=== PATIENT | female | born 1935 | race Caucasian/White ===

== ENCOUNTER 2017-07-19 10:08 | Observation (INO) ==
--- NOTE | 2017-07-19 10:20 | Emergency Department Note ---
Disposition Clinical Impression: Dyspnea, Elevated troponin, Renal insufficiency, Community acquired pneumonia Disposition: Admitted As Inpatient Reasons to Return/Additional Instructions: your blood pressure was normal to low today so please follow up with your doctor. Forms: ED Satisfaction Letter SOB HPI - General Chief Complaint: ED Shortness of Breath/Dyspnea Stated Complaint: DID NOT HAVE OXYGEN Time Seen by Provider: 07/19/17 10:10 Source: patient Mode of arrival: EMS Limitations: no limitations Nursing Notes Reviewed: Yes Vital Signs Reviewed: Yes - History of Present Illness Patient says she is visiting from out of town. She only wears oxygen at night when she sleeps. She did not bring her oxygen with her when she came. She woke up this morning and was extremely short of breath and called the squad. She has been on oxygen she feels back to normal she says. She denies any worse shortness of breath than normal for her at this point. She denies any chest pain, fever, nausea or vomiting. 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 Context: medication noncompliance Severity: moderate Consistency/Duration: constant Improves with: oxygen Worsens with: nothing Known history of: COPD, diabetes Associated symptoms: Reports: denies other symptoms Treatment prior to arrival: none Cough present: No - Related Data Home Medications Medication Instructions Recorded Confirmed Allopurinol [Zyloprim] 300 mg PO DAILY 07/19/17 07/19/17 Atorvastatin [Lipitor] 10 mg PO HS 07/19/17 07/19/17 Carbidopa [Lodosyn] 100 mg PO QID 07/19/17 07/19/17 Cholecalciferol (D-3) [Vitamin D] 1,000 unit PO DAILY 07/19/17 07/19/17 Cyclosporine [Restasis] 1 each OP BID 07/19/17 07/19/17 Esomeprazole Magnesium [Nexium] 20 mg PO BID 07/19/17 07/19/17 Furosemide [Lasix] 60 mg PO DAILY 07/19/17 07/19/17 Gabapentin [Neurontin] 100 mg PO BID 07/19/17 07/19/17 Hydroxychloroquine [Plaquenuil] 200 mg PO DAILY 07/19/17 07/19/17 Isosorbide MONOnitrate [Isosorbide 120 mg PO BID 07/19/17 07/19/17 Mononitrate ER] Levothyroxine [Synthroid] 100 mcg PO DAILY 07/19/17 07/19/17 Losartan [Cozaar] 50 mg PO DAILY 07/19/17 07/19/17 Metoprolol [Lopressor] 50 mg PO BID 07/19/17 07/19/17 Warfarin [Coumadin] 1.25 mg PO 1800 07/19/17 07/19/17 metFORMIN [Glucophage] 500 mg PO BIDWM 07/19/17 07/19/17 Allergies Allergy/AdvReac Type Severity Reaction Status Date / Time cephalexin [From Keflex] AdvReac Vomiting Verified 07/19/17 10:21 All systems ED: reviewed and negative except as stated. Review of Systems: As Per HPI Constitutional: Denies: fever, chills, weakness, weight change Eyes: Denies: eye pain, eye discharge, vision change ENT ED: Denies: ear pain, throat pain, dental pain, hearing loss, epistaxis, congestion, dysphagia Cardiovascular: Denies: chest pain, palpitations, dyspnea on exertion, edema, syncope Respiratory: Reports: other (mild SOB) Gastrointestinal: Denies: abdominal pain, nausea, vomiting, diarrhea, constipation, hematemesis, melena, hematochezia Genitourinary: Denies: dysuria, frequency, hematuria, discharge Musculoskeletal: Reports: as per HPI Integumentary: Denies: rash, abrasion, lesions Neurological: Denies: headache, weakness, numbness, paresthesias, confusion, abnormal gait, vertigo Psychiatric: Denies: anxiety, depression, suicidal thoughts, homicidal thoughts , auditory hallucinations, visual hallucinations Endocrine: Denies: fatigue Hematological/Lymphatic: Denies: easy bleeding, easy bruising Allergic/Immunologic: Denies: facial swelling, urticaria Past Medical History - Past Medical History Attestation: Yes The following information was validated with the patient. Source: patient Medical history: Reports: diabetes, hyperlipidemia, renal disease, other ( hypothyroid) Physical Exam - General Limitations: no limitations General appearance: alert - Head Head exam: atraumatic, normocephalic, normal inspection - Eye Eye exam: Present: normal appearance, PERRL, EOMI - ENT ENT exam: normal exam, normal oropharynx, mucous membranes moist - Neck Neck exam: Present: normal inspection, full ROM, trachea midline - Chest Chest inspection: Present: normal inspection, symmetric chest wall rise - Respiratory Respiratory exam: Present: normal lung sounds bilaterally. Absent: respiratory distress, wheezes, accessory muscle use - Cardiovascular Cardiovascular exam: Present: regular rate, normal rhythm - Abdominal Exam Abdominal exam: Present: soft, Non-Tender, normal bowel sounds - Extremities Exam Extremities exam: Present: normal inspection - Neurological Exam Neurological exam: Present: alert, oriented X3 - Psychiatric Psychiatric exam: Present: normal affect, normal mood - Skin Skin exam: Present: warm, dry Course Vital Signs Temperature 99.6 F 07/19/17 10:10 Pulse Rate 96 07/19/17 10:10 Respiratory Rate 20 07/19/17 10:10 Blood Pressure 98/48 07/19/17 10:10 O2 Sat by Pulse Oximetry 97 07/19/17 10:10 Temperature 99.6 F 07/19/17 10:10 Pulse Rate 102 07/19/17 11:02 Respiratory Rate 18 07/19/17 11:02 Blood Pressure 78/38 07/19/17 11:02 O2 Sat by Pulse Oximetry 97 07/19/17 11:02 Oxygen Delivery Oxygen Delivery Nasal Cannula Shortness of Breath/Dyspnea - [facility] Narrative Medical decision making narrative: Mrs. Clark initially said she was breathing normal with her oxygen which occur off the oxygen and she said she is having a little more trouble breathing so we decided to do a workup on her. - Lab Data Lab results reviewed: Yes I reviewed the patient's lab results. Result diagrams: 07/19/17 10:40 07/19/17 10:40 Lab Results 07/19/17 07/19/17 07/19/17 Range/Units 10:40 10:40 10:40 WBC 14.1 H (4.3-11.1) K/mcL RBC 2.67 L (3.82-4.97) M/mcL Hgb 8.3 L (11.5-15.4) g/dL Hct 26.6 L (35.3-44.9) % MCV 99.6 (83.0-100.0) fL MCH 31.1 (28.0-33.3) pg MCHC 31.2 L (31.6-35.5) g/dL RDW 15.8 H (11.5-14.5) % Plt Count 183 (140-400) K/mcL MPV 11.2 (9.4-12.4) fL Immature Gran % 0.5 (0-4) % Seg Neutrophils % 87.3 % Lymphocytes % 3.3 % Monocytes % 8.2 % Eosinophils % 0.6 % Basophils % 0.1 % Neutrophils # 12.3 H (1.6-8.9) K/mcL Lymphocytes # 0.5 L (0.6-4.6) K/mcL Monocytes # 1.2 (0.0-1.3) K/mcL Eosinophils # 0.1 (0.0-0.6) K/mcL Basophils # 0.0 (0.0-0.2) K/mcL PT 26.6 H (9.4-12.1) Seconds INR 2.4 APTT 30.5 (26.0-36.0) Seconds Sodium 142 (136-145) mEq/L Potassium 4.4 (3.5-4.5) mEq/L Chloride 103 (98-109) mEq/L Carbon Dioxide 27 (19-29) mEq/L BUN 60 H (7-20) mg/dL Creatinine 2.22 H (0.57-1.11) mg/dL Est GFR ( Amer) 26 L (> 60) Est GFR (Non-Af Amer) 21 L (> 60) BUN/Creatinine Ratio 27 H (6-26) Glucose 248 H (70-99) mg/dL Calculated Osmolality 319 H (280-300) Calcium 8.6 (8.6-10.8) mg/dL Total Bilirubin 0.4 (0.2-1.2) mg/dL AST 18 (5-34) Units/L ALT 10 (0-55) Units/L Alkaline Phosphatase 92 (38-126) Units/L Troponin I (0-0.03) ng/mL B-Natriuretic Peptide (0-100) pg/mL Serum Total Protein 5.4 L (6.0-8.3) g/dL Albumin 2.8 L (3.5-5.0) g/dL Globulin 2.6 (2.4-3.5) g/dL Albumin/Globulin Ratio 1.1 (1.1-2.2) 07/19/17 07/19/17 Range/Units 10:40 10:40 WBC (4.3-11.1) K/mcL RBC (3.82-4.97) M/mcL Hgb (11.5-15.4) g/dL Hct (35.3-44.9) % MCV (83.0-100.0) fL MCH (28.0-33.3) pg MCHC (31.6-35.5) g/dL RDW (11.5-14.5) % Plt Count (140-400) K/mcL MPV (9.4-12.4) fL Immature Gran % (0-4) % Seg Neutrophils % % Lymphocytes % % Monocytes % % Eosinophils % % Basophils % % Neutrophils # (1.6-8.9) K/mcL Lymphocytes # (0.6-4.6) K/mcL Monocytes # (0.0-1.3) K/mcL Eosinophils # (0.0-0.6) K/mcL Basophils # (0.0-0.2) K/mcL PT (9.4-12.1) Seconds INR APTT (26.0-36.0) Seconds Sodium (136-145) mEq/L Potassium (3.5-4.5) mEq/L Chloride (98-109) mEq/L Carbon Dioxide (19-29) mEq/L BUN (7-20) mg/dL Creatinine (0.57-1.11) mg/dL Est GFR ( Amer) (> 60) Est GFR (Non-Af Amer) (> 60) BUN/Creatinine Ratio (6-26) Glucose (70-99) mg/dL Calculated Osmolality (280-300) Calcium (8.6-10.8) mg/dL Total Bilirubin (0.2-1.2) mg/dL AST (5-34) Units/L ALT (0-55) Units/L Alkaline Phosphatase (38-126) Units/L Troponin I 0.04 H* (0-0.03) ng/mL B-Natriuretic Peptide 433 H (0-100) pg/mL Serum Total Protein (6.0-8.3) g/dL Albumin (3.5-5.0) g/dL Globulin (2.4-3.5) g/dL Albumin/Globulin Ratio (1.1-2.2) - Radiology Data Radiology results reviewed: Yes I reviewed the patient's radiology results. - EKG Data EKG attestation: Yes I reviewed and interpreted this EKG. EKG results narrative: EKG read by myself shows sinus rhythm with case no PVCs. Rate is 92 bpm. WV interval 166 ms. QRS duration 87 ms. R axis of [address]-T changes are noted.
[2017-07-19] MEDS ORDERED: 0.9 % Sodium Chloride 1,000 ML IVC ONE (10:27)
[2017-07-19] MEDS ORDERED: Ipratropium/Albuterol Neb 3 ML IH ONE (10:41)
[2017-07-19 10:47] LABS: Basophils % 0.1 %; Eosinophils # 0.1 K/mcL (0.0-0.6); Eosinophils % 0.6 %; Hematocrit 26.6 % (35.3-44.9); Hemoglobin 8.3 g/dL (11.5-15.4); Immature Granulocytes % 0.5 % (0-4); Lymphocytes # 0.5 K/mcL (0.6-4.6); Lymphocytes % 3.3 %; Mean Corpuscular HGB Conc 31.2 g/dL (31.6-35.5); Mean Corpuscular Hemoglobin 31.1 pg (28.0-33.3); Mean Corpuscular Volume 99.6 fL (83.0-100.0); Mean Platelet Volume 11.2 fL (9.4-12.4); Monocytes # 1.2 K/mcL (0.0-1.3); Monocytes % 8.2 %; Neutrophils # 12.3 K/mcL (1.6-8.9); Platelet Count 183 K/mcL (140-400); Red Blood Count 2.67 M/mcL (3.82-4.97); Red Cell Distribution Width 15.8 % (11.5-14.5); Segmented Neutrophils % 87.3 %
[2017-07-19 10:56] LABS: INR 2.4; Prothrombin Time 26.6 Seconds (9.4-12.1)
[2017-07-19 10:58] LABS: Activated Partial Thrombo Time 30.5 Seconds (26.0-36.0)
[2017-07-19 11:07] LABS: Albumin 2.8 g/dL (3.5-5.0); Albumin/Globulin Ratio 1.1 (1.1-2.2); Bilirubin,Total 0.4 mg/dL (0.2-1.2); Calcium 8.6 mg/dL (8.6-10.8); Globulin 2.6 g/dL (2.4-3.5); Potassium 4.4 mEq/L (3.5-4.5); Total Protein 5.4 g/dL (6.0-8.3)
[2017-07-19] MEDS ORDERED: Aspirin 81 MG TAB.CHEW PO STA (11:19)
[2017-07-19] MEDS: 0.9 % Sodium Chloride 250 ML IVC PRN ×4 (11:31→13:11)
[2017-07-19 13:56] LABS: Bilirubin,Urine Negative (Negative); Blood,Urine Negative (Negative); Clarity,Urine Clear (Clear); Color,Urine Yellow (Yellow); Glucose,Urine (UA) Normal (Normal); Ketones,Urine Negative (Negative); Leukocyte Esterase,Urine Negative (Negative); Nitrite,Urine Negative (Negative); PH,Urine 6.5 pH Units (5.0-8.0); Protein,Urine 30 mg/dL (Neg-Trace); Specific Gravity,Urine 1.015 (1.010-1.025); Urobilinogen,Urine Normal (Normal)
[2017-07-19 14:06] LABS: Granular Casts,Urine Moderate per lpf (None Seen); Squamous Epithelial Cell,Urine Few per lpf (None-Few); WBC,Urine 0-3 per hpf (0-3)
[2017-07-19] MEDS ORDERED: Azithromycin 250 MG TABLET PO ONE ×3 (14:13→14:14)
[2017-07-19] MEDS ORDERED: 0.9 % Sodium Chloride 250 ML IVC PRN (14:14)
[2017-07-19] MEDS: CARBIDOPA 100 MG PO SCH ×2 (15:46→20:12)
[2017-07-19] MEDS ORDERED: *HR* Metformin 500 MG TABLET PO SCH (17:24)
[2017-07-19] MEDS ORDERED: *HR* Dextrose 50 % in Water (Syg) 50 ML SYRINGE IVP PRN (17:25)
[2017-07-19] MEDS ORDERED: D5% in Water 1,000 ML IVC PRN (17:25)
[2017-07-19] MEDS ORDERED: Dextrose Gel 15 GM PO PRN ×2 (17:25)
[2017-07-19] MEDS ORDERED: *HR* Warfarin 1 MG TABLET PO SCH (18:00)
[2017-07-19] MEDS: Insulin LISPRO 300 UNITS/3 ML VIAL SQ SCH (18:26)
[2017-07-19] MEDS: Gabapentin 100 MG CAPSULE PO SCH (20:11)
[2017-07-19] MEDS: RESTASIS EYE DROPS OP SCH (20:13)
[2017-07-19] MEDS ORDERED: Insulin LISPRO 300 UNITS/3 ML VIAL SQ SCH (21:00)
[2017-07-20 05:49] LABS: Basophils % 0.1 %; Eosinophils # 0.2 K/mcL (0.0-0.6); Eosinophils % 0.9 %; Hematocrit 24.7 % (35.3-44.9); Hemoglobin 7.6 g/dL (11.5-15.4); Immature Granulocytes % 0.7 % (0-4); Lymphocytes # 1.3 K/mcL (0.6-4.6); Lymphocytes % 7.7 %; Mean Corpuscular HGB Conc 30.8 g/dL (31.6-35.5); Mean Corpuscular Hemoglobin 30.6 pg (28.0-33.3); Mean Corpuscular Volume 99.6 fL (83.0-100.0); Mean Platelet Volume 11.3 fL (9.4-12.4); Monocytes # 0.9 K/mcL (0.0-1.3); Monocytes % 5.5 %; Neutrophils # 13.8 K/mcL (1.6-8.9); Platelet Count 140 K/mcL (140-400); Red Blood Count 2.48 M/mcL (3.82-4.97); Red Cell Distribution Width 15.9 % (11.5-14.5); Segmented Neutrophils % 85.1 %
[2017-07-20 06:07] LABS: Albumin 2.4 g/dL (3.5-5.0); Albumin/Globulin Ratio 0.9 (1.1-2.2); Bilirubin,Total 0.5 mg/dL (0.2-1.2); Globulin 2.6 g/dL (2.4-3.5); Potassium 4.6 mEq/L (3.5-4.5)
[2017-07-20 06:47] VITALS: BP 107/55
[2017-07-20] MEDS: Gabapentin 100 MG CAPSULE PO SCH (07:41)
[2017-07-20] MEDS: Insulin LISPRO 300 UNITS/3 ML VIAL SQ SCH (07:41)
[2017-07-20] MEDS: RESTASIS EYE DROPS OP SCH (07:51)
[2017-07-20] MEDS: CARBIDOPA 100 MG PO SCH (07:51)
[2017-07-20] MEDS ORDERED: levoFLOXacin 500 MG TABLET PO ONE (08:58)
[2017-07-20] MEDS ORDERED: Cholecalciferol (D-3) 1,000 UNIT TABLET PO SCH (09:00)
--- NOTE | 2017-07-20 09:02 | Internal Med History&Physical ---
Date of Encounter: 07/20/17 Time of Encounter: 08:35 Assessment and Plan (1) Syncope Current visit: Yes Status: Acute Possibly multifactorial origin including hypotension and anemia. She was placed on telemetry through emergency room. IV fluids were ordered. Qualifiers: Syncope type: unspecified Qualified Code(s): R55 - Syncope and collapse (2) Anemia Current visit: Yes Status: Acute Suspect due to Coumadin use with chronic kidney disease stage IV. Qualifiers: Anemia type: unspecified type Qualified Code(s): D64.9 - Anemia, unspecified (3) Community acquired pneumonia Current visit: Yes Status: Acute She will be given Levaquin. Zithromax was given in emergency room. Qualifiers: Laterality: unspecified laterality Qualified Code(s): J18.9 - Pneumonia, unspecified organism Internal Medicine - H&P: HPI Chief complaint: Syncope Admitted From: Home Plans for Post Hospital Care: Home History of present illness: Ms. Clark is a 81 year old female who had a syncopal episode while at a local hotel. She reports she was standing and felt dizzy and lightheaded. She was quickly placed in a chair and became unresponsive. She was brought to emergency room and evaluated and admitted to [facility] for ongoing care needs. She reports this is the third episode of syncope in the past 6 months. She has seen a neurologist and had some evaluation done without etiology found. She reports having a stroke December 2016 which left her with "weakness". She has history of Parkinson's disease. She denies loss of bowel or bladder incontinence. She has no history of seizures. She feels back to her baseline now and wishes to be discharged home. Her cardiovascular history significant for hypertension. She has known ASHD but denies LA. She had 4 stents placed at a 2014 heart catheter. She has occasional edema. She has had multiple DVTs most recent one in 2016 and takes Coumadin for these. She denies pulmonary emboli. She has a heart murmur but does not know details. She does not get angina or lightheadedness on exertion. Past Med Surg Social Fam HX - Past Medical History Medical history: diabetes, hyperlipidemia, renal disease, other (hypothyroid) Psychiatric history: no psych history - Social History Smoking Status: Never smoker Alcohol use: none Drug use: none Internal Medicine - H&P: Meds Allopurinol [Zyloprim] 300 mg PO DAILY 07/19/17 [History] Atorvastatin [Lipitor] 10 mg PO HS 07/19/17 [History] Carbidopa [Lodosyn] 100 mg PO QID 07/19/17 [History] Cholecalciferol (D-3) [Vitamin D] 1,000 unit PO DAILY 07/19/17 [History] Cyclosporine [Restasis] 1 each OP BID 07/19/17 [History] Esomeprazole Magnesium [Nexium] 20 mg PO BID 07/19/17 [History] Furosemide [Lasix] 60 mg PO DAILY 07/19/17 [History] Gabapentin [Neurontin] 100 mg PO BID 07/19/17 [History] Hydroxychloroquine [Plaquenuil] 200 mg PO DAILY 07/19/17 [History] Isosorbide MONOnitrate [Isosorbide Mononitrate ER] 120 mg PO BID 07/19/17 [ History] Levothyroxine [Synthroid] 100 mcg PO DAILY 07/19/17 [History] Losartan [Cozaar] 50 mg PO DAILY 07/19/17 [History] Metoprolol [Lopressor] 50 mg PO BID 07/19/17 [History] Warfarin [Coumadin] 1.25 mg PO 1800 07/19/17 [History] metFORMIN [Glucophage] 500 mg PO BIDWM 07/19/17 [History] 3 Allergy/AdvReac Type Severity Reaction Status Date / Time cephalexin [From Keflex] AdvReac Vomiting Verified 07/19/17 10:21 All Systems PM: A 10-system review of systems was performed and is negative for pertinent findings except as documented above in the HPI. Review of systems: Gen.: She states her weight is stable past few months Cardiovascular: As per history of present illness Respiratory: She is a lifelong nonsmoker and has no chronic lung disease. She reports she has been diagnosed with right lung nodules and is being followed for these. GI: She has had cholecystectomy. She has GERD. She denies disorders of her liver or exocrine pancreas : She has chronic kidney disease stage IV follows with a roaster supervisor. She denies other kidney or bladder disorders Neurologic: As per history of present illness Endocrine: She was diagnosed with DM 2 approximately 2011. She has hypothyroidism following goiter resection many years ago. She has hyperlipidemia Hematology/oncology: She had anemia found on blood work in the emergency room. She denies internal malignancies. 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 Eyes: EOMI. There is no scleral icterus. Mouth: Mucosa is moist. Neck: Supple and nontender. There is no thyromegaly or adenopathy noted. Heart: Regular without gallops or ectopics. She has a 2 to 3/6 systolic murmur heard at the left sternal border.. Lungs: No wheezes or crackles are heard. Abdomen: Soft and nontender. No masses or guarding are noted. Extremities: She has chronic venous stasis pigmentation changes of her lower legs. There is no pitting edema. She has DJD changes of her hands. Neurologic: Mental status: She is talkative and a good historian. Cranial nerves: Smile is symmetric. Forehead wrinkles bilaterally. Tongue protrudes midline. EOMI. Motor: There is no pronator drift. Cerebellar: Finger to nose is intact bilaterally. Skin: Warm and dry Internal Med - H&P Results - Labs CBC & Chem 7: 07/20/17 05:22 07/20/17 05:22 Labs: Short CBC 07/20/17 Range/Units 05:22 WBC 16.2 H (4.3-11.1) K/mcL Hgb 7.6 L (11.5-15.4) g/dL Hct 24.7 L (35.3-44.9) % Plt Count 140 (140-400) K/mcL Neutrophils # 13.8 H (1.6-8.9) K/mcL BMP 07/20/17 05:22 Sodium 141 Potassium 4.6 H Chloride 105 Carbon Dioxide 26 BUN 66 H Creatinine 2.51 H Glucose 95 Calcium 8.0 L Liver Function 07/20/17 Range/Units 05:22 Total Bilirubin 0.5 (0.2-1.2) mg/dL AST 16 (5-34) Units/L ALT 10 (0-55) Units/L Alkaline Phosphatase 81 (38-126) Units/L Albumin 2.4 L (3.5-5.0) g/dL - VTE Reasons for not Prescribing Prophylaxis: Treatment not Indicated - Low risk for VTE
--- NOTE | 2017-07-20 09:11 | Discharge Summary ---
Date of Encounter: 07/20/17 Time of Encounter: 08:35 - Discharge Diagnosis (1) Syncope Priority: Primary Status: Acute Qualifiers: Syncope type: unspecified Qualified Code(s): R55 - Syncope and collapse (2) Anemia Priority: Secondary Status: Acute Qualifiers: Anemia type: unspecified type Qualified Code(s): D64.9 - Anemia, unspecified (3) Community acquired pneumonia Priority: Secondary Status: Acute Qualifiers: Laterality: unspecified laterality Qualified Code(s): J18.9 - Pneumonia, unspecified organism - Discharge Medications Prescriptions: Azithromycin [Zithromax] 250 mg PO DAILY #4 tablet Lactobacillus [Culturelle] 1 each PO BID #8 [email or web address] Home Medications: Allopurinol [Zyloprim] 300 mg PO DAILY 07/19/17 [History] Atorvastatin [Lipitor] 10 mg PO HS 07/19/17 [History] Carbidopa [Lodosyn] 100 mg PO QID 07/19/17 [History] Cholecalciferol (D-3) [Vitamin D] 1,000 unit PO DAILY 07/19/17 [History] Cyclosporine [Restasis] 1 each OP BID 07/19/17 [History] Esomeprazole Magnesium [Nexium] 20 mg PO BID 07/19/17 [History] Furosemide [Lasix] 60 mg PO DAILY 07/19/17 [History] Gabapentin [Neurontin] 100 mg PO BID 07/19/17 [History] Hydroxychloroquine [Plaquenuil] 200 mg PO DAILY 07/19/17 [History] Isosorbide MONOnitrate [Isosorbide Mononitrate ER] 120 mg PO BID 07/19/17 [ History] Levothyroxine [Synthroid] 100 mcg PO DAILY 07/19/17 [History] Losartan [Cozaar] 50 mg PO DAILY 07/19/17 [History] Metoprolol [Lopressor] 50 mg PO BID 07/19/17 [History] Warfarin [Coumadin] 1.25 mg PO 1800 07/19/17 [History] metFORMIN [Glucophage] 500 mg PO BIDWM 07/19/17 [History] Azithromycin [Zithromax] 250 mg PO DAILY #4 tablet 07/20/17 [Rx] Lactobacillus [Culturelle] 1 each PO BID #8 cap.[email or web address] 10/09/17 [Rx] Allergies/Adverse Reactions: 3 Allergy/AdvReac Type Severity Reaction Status Date / Time cephalexin [From Keflex] AdvReac Vomiting Verified 07/19/17 10:21 Date of admission: 07/19/17 13:57 Primary care physician: Adi Freeman - Patient Status Disposition: Home, Self-Care Condition: Good Overall status at discharge: patient is progressing back to baseline - Discharge Instructions Instructions: Pneumonia (DC) Follow Up With: Adi Freeman [Other] - 1 week (07/24/2017 0900) Additional Instructions: your blood pressure was normal to low today so please follow up with your doctor. - Diet and Activity Activity: resume usual activities as tolerated, wear oxygen at night Diet: advance to your usual diet Hospital course: Ms. Clark is a 81 year old female who had a syncopal episode while at a local hotel. She reports she was standing and felt dizzy and lightheaded. She was quickly placed in a chair and became unresponsive. She was brought to emergency room and evaluated and admitted to [facility] for ongoing care needs. Initial orders written by the emergency room physician. I saw her the morning of July 20 and performed the history and physical and discharge. She was given IV fluids for borderline hypotension. Her blood pressure improved. She required oxygen and stated she used oxygen at bedtime at home. She had not used oxygen during her overnight stay at the hotel. When I saw her she felt back to baseline. She had no further syncopal or near syncopal episodes. I reviewed with her her lab and x-ray results which showed anemia, chronic kidney disease stage IV, and bilateral pneumonia. She will follow with her PCP in the [place] area later this week. She will continue with azithromycin and lactobacillus for 4 days for the pneumonia. - Time Spent with Patient Total time spent providing and/or coordinating discharge services: - Constitutional Vitals: Temp Pulse Resp BP Pulse Ox 98.9 F 74 18 107/55 99 07/20/17 06:42 07/20/17 06:42 07/20/17 06:42 07/20/17 06:42 07/20/17 06:42 - VTE Reasons for not Prescribing Prophylaxis: Treatment not Indicated - Low risk for VTE
[2017-07-20 10:47] LABS: Hemoglobin A1C 5.3 %
--- NOTE | 2017-07-20 20:11 | Electrocardiograph Report ---
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
--- NOTE | 2017-07-20 20:27 | Electrocardiograph Report ---
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
== END 2017-07-20 09:40 | disposition home or self-care (01) ==
LOC: INPPIK 10:08 → EMEROOPIK 10:08 → INPPIK 14:45
PROVIDERS: ADMIT Internal Medicine; ATTEND Internal Medicine